=== PATIENT | male | born 1960 | race Caucasian/White ===

== ENCOUNTER 2019-04-04 17:52 | Emergency (ER) | payer BC ==
[~2019-04-04] VITALS: Ht 185.4 cm; Wt 97.5 kg
[2019-04-04 18:01] VITALS: Ht 185.4 cm; Wt 97.5 kg
[2019-04-04 20:21] LABS: BASOPHIL % 0.2 % (0-2); PLATELET COUNT 201 x10^3mcL (130-400)
[2019-04-04 20:27] LABS: UA SPECIFIC GRAVITY 1.015 (1.005-1.035); microscopic required? YES; urine erythrocyte TRACE (NEGATIVE)
[2019-04-04 20:33] LABS: CALCIUM 8.6 mg/dL (8.5-10.1); CARBON DIOXIDE 29.2 mmol/L (21-32); CHLORIDE SERUM 108 mmol/L (98-107); GFR1 > 60 mL/min; GLUCOSE SERUM 97 mg/dL (74-106); SODIUM SERUM 145 mmol/L (136-145)
[2019-04-04 20:43] LABS: AMPHETAMINE QUAL UR NONE DETECTED (See below)
[2019-04-04 20:44] LABS: ALKALINE PHOSPHATASE 58 U/L (46-116); ALT/SGPT 40 U/L (16-63); AST/SGOT 30 U/L (15-37); BILIRUBIN TOTAL 0.51 mg/dL (0.20-1.00); HDL CHOLESTEROL 39 mg/dL (40-60); LIPASE 161 IU/L (73-393); T4(THYROXINE) 7.1 ug/dL (4.7-13.3); TOTAL PROTEIN, SERUM 7.2 g/dL (6.4-8.2)
[2019-04-04 20:47] LABS: CHOLESTEROL 113 mg/dL (<200)
[2019-04-04 23:41] VITALS: BP 106/59
== END 2019-04-04 23:41 | disposition home or self-care (01) ==
LOC: ED 17:52
PROVIDERS: Emergency Medicine
DX: S22.31XA Fracture of one rib, right side, initial encounter for closed fracture (principal); R55 Syncope and collapse; R10.9 Unspecified abdominal pain; V48.5XXA Car driver injured in noncollision transport accident in traffic accident, initial encounter; Y93.I9 Activity, other involving external motion; Y92.413 State road as the place of occurrence of the external cause; Y99.8 Other external cause status
CPT/HCPCS: 36415; 83880; Q9967